=== PATIENT | female | born 1945 | race Caucasian/White ===

== ENCOUNTER → 2018-01-25 10:24 | Outpatient (CLI) | payer OTHER, SELFPAY ==
[2018-01-25 11:17] LABS: Add Manual Diff / Slide Review NO; Basophils Percent Auto 0.9 % (0-2); Hematocrit 41.4 % (36-46); Hemoglobin 13.2 g/dL (12.0-16.0); Lymphocytes Percent Auto 16.9 % (25-40); Mean Corpuscular HGB Conc 31.9 % (30-36); Mean Corpuscular Hemoglobin 25.2 PG (26-34); Mean Corpuscular Volume 78.8 fL (80-100); Neutrophils Absolute Auto 11700 /uL (3000-5900); Neutrophils Percent Auto 75.2 % (50-75); Platelet Count 181 X10^3/uL (150-400); Red Blood Cell Count 5.25 X10^6/uL (4.0-5.2); Red Cell Distribution Width 15.2 % (11.6-14.8); White Blood Cell Count 15.5 X10^3/uL (4.5-11.0)
[2018-01-25 12:03] LABS: Alanine Aminotransferase 32 IU/L (9-52); Albumin 4.3 g/dL (3.5-5.0); Albumin Globulin Ratio 1.3 (1.0-2.8); Alkaline Phosphatase 151 U/L (38-126); Aspartate Aminotransferase 23 IU/L (14-36); BUN Creatinine Ratio 18.8 (6-22); Bilirubin Total 0.8 mg/dL (0.2-1.3); Blood Urea Nitrogen 15 mg/dL (7-17); Calcium 9.2 mg/dL (8.4-10.2); Carbon Dioxide 24 mmol/L (22-32); Chloride 103 mmol/L (98-107); Cholesterol 147 mg/dL (140-199); Estimated Glomerular Filt Rate > 60.0 mL/min (>60); Globulin 3.3 g/dL (1.7-4.1); Glucose 98 mg/dL (80-110); HDL Cholesterol 41 mg/dL (40-60); HEMOLYSIS 21 (0-50); LDL Cholesterol Calculated 79 mg/dL (<100); Potassium 4.1 mmol/L (3.4-5.1); Sodium 140 mmol/L (137-145); Total Protein 7.6 g/dL (6.3-8.2); Triglycerides 136 mg/dL (35-150)
[2018-01-25 12:43] LABS: Microalbumi Creatinin Ratio Ur 8.8 ug/mg CR (<30); Microalbumin Urine Random 0.8 mg/dL (0-1.6)
[2018-01-25 14:00] LABS: Thyroid Stimulating Hormone 2.46 uIU/mL (0.47-4.68)
[2018-01-27 20:49] LABS: Fecal Immunochemical Test NOT DETECTED
== END ==
PROVIDERS: PCP Physician Assistant; Visit Provider Physician Assistant
DX: E78.5 Hyperlipidemia, unspecified (principal); I10 Essential (primary) hypertension; K76.0 Fatty (change of) liver, not elsewhere classified; R53.83 Other fatigue; R60.9 Edema, unspecified; Z12.11 Encounter for screening for malignant neoplasm of colon
CPT/HCPCS: 36415; 80053; 80061; 82043; 82274; 82570; 84443; 85025

== ENCOUNTER → 2018-03-23 14:00 | Oncology outpatient (ONC) | payer OTHER, SELFPAY ==
[2018-02-22 14:58] VITALS: BP 152/81; PULSE 70; RESP 18; TEMP 36.4; O2SAT 95
--- NOTE | 2018-02-22 15:40 | P.CONONC_ITS ---
History of Present Illness - Data of Consult Consult date: 02/22/18 Primary Care Provider: Darlyn Giron PA-C - Consult Narrative Narrative: Diagnosis: Leukocytosis History of present illness: Melanie Viveros is a 72 year old female who is referred for further evaluation of a mild to moderate leukocytosis. The patient reports that she has been feeling perfectly well and has no specific complaints. She has not had any recent infections. She denies any fevers chills or night sweats. She has not noted any adenopathy. Strength and energy level have been normal. No shortness of breath or cough. No GI complaints. She did have a routine CBC done on January 25. It showed a white count of 15.5 with a hemoglobin of 13.2 hematocrit 41.4 and platelets of a [id number]. Differential showed 75% neutrophils 16% lymphocytes 5% monos 2% eosinophils and 0.9% basophils. The only old CBCs we have available are from 2015 in 2016. In July 2015 her white count was 14.0. In August of 2015 it was 13.4 and in November of 2016 was 14.6. The patient is unaware of any prior history of abnormal blood counts. She has not been bothered by recurrent or persistent infections. It has been several years since she has had any. She has not needed any recent antibiotics. She has never required a red cell transfusion. She was never a blood donor. She is unaware of any family history of abnormal blood counts. Her past medical history is notable for hypertension and hyperlipidemia. She has had a prior hysterectomy for fibroids. She has otherwise been quite healthy. Her medications include amlodipine Lipitor metoprolol and spironolactone. She reports allergies to penicillin sulfa has Kyrie inhibitors and ARBs Family history is negative for malignancy or blood dyscrasias. Social history: She is . She does not have any children. She has never smoked. She has had occasional alcohol use. 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 CC: Da Catherine MD Home Medications and Allergies Home Medications Medication Instructions Recorded Confirmed Type pneumococcal 13-yeni conj 0.5 ml IM ONCE #0.5 ml 12/30/17 Rx vaccine-dip crm (PF) 0.5 mL IM syringe spironolactone 25 mg tablet 12.5 mg PO BID #14 tab 12/30/17 Rx spironolactone 25 mg tablet 12.5 mg PO BID #90 tab 12/30/17 Rx varicella-zoster glycoE [id number] 50 mcg IM ONCE #1 each 12/30/17 Rx adj(PF) 50 mcg/0.5 mL IM susp, kit metoprolol tartrate 100 mg tablet 100 mg PO Q12H #180 tab 01/07/18 Rx amlodipine 5 mg tablet 5 mg PO QDAY #90 tab 01/10/18 Rx atorvastatin 10 mg tablet 10 mg PO HS #90 tab 01/10/18 Rx Allergies Allergy/AdvReac Type Severity Reaction Status Date / Time Penicillins [PENICILLINS] Allergy Severe Swollen Unverified 12/30/17 10:15 tongue, hives, rash Sulfa (Sulfonamide Allergy Severe SWELLING, Unverified 12/30/17 10:15 Antibiotics) HIVES [SULFA (SULFONAMIDE ANTIBIOTICS)] KYRIE Inhibitors Allergy Mild Cough Unverified 12/30/17 10:15 [KYRIE INHIBITORS] ARB-Angiotensin Receptor Allergy Mild Cough Unverified 12/30/17 10:15 Antagonist [ARB-ANGIOTENSIN RECEPTOR ANTAGONIST] Medical History - Medical, Surgical, Family History Surgical History: Surgical History Status post hysterectomy Family History: Family History Mother Smoker - Social History Smoking Status: Never smoker Alcohol Intake Frequency: 0-2 drinks per day Household Members: spouse Current Occupational Status: retired Review of Systems - Patient Self-Reported Symptoms SR respiratory issues: Shortness of breath Constitutional: able to conduct usual activities, no weight loss, no weight gain Eyes: change in vision (She did have some injections in the eye following a retinal hemorrhage. She has also had cataract surgery.) Gastrointestinal: no change in appetite, no abdominal pain Integumentary: no bleeding or bruising Exam - Constitutional positive no acute distress, positive obese - Routine HEENT Exam Head: Present: normocephalic, atraumatic Eye: Present: EOMI, PERRL. Absent: scleral injection, conjunctivae pink ENT: Present: mucous membranes moist, oropharynx clear, dentition normal - Routine Neck Exam Present: supple. Absent: lymphadenopathy, thyromegaly - Routine Chest/Breast/Axilla Exam Axillae: Absent: lymphadenopathy - Routine Respiratory Exam Present: Clear to auscultation bilaterally. Absent: rales, wheezes - Routine Cardiovascular Exam Present: RRR, S1, S2. Absent: murmur - Routine Abdominal Exam Present: soft, normoactive bowel sounds. Absent: tenderness, organomegaly, mass - Routine Extremities Exam Absent: cyanosis, clubbing, edema - Routine Back/Spine Exam Back/Spine: Absent: paraspinal tenderness, vertebral tenderness - Routine Skin Exam Present: intact. Absent: petechiae, rash - Routine Neurological Exam Present: alert, oriented X3 - Routine Psychiatric Exam Present: normal affect, normal thought process Results - Imaging Additional studies: Procedures Insertion of intraocular lens prosthesis at time of cataract extraction, one- stage (08/02/13) Phacoemulsification and aspiration of cataract (08/02/13) Assessment and Plan (1) Leukocytosis, unspecified Current visit: Yes Status: Acute The patient is a 72-year-old woman with a mild elevation in her white cell count that appears to been present for at least 2 and half years. It does not appear to be progressive. She is not in any way symptomatic. There is no evidence of splenomegaly. She has no constitutional symptoms. The differential shows mostly neutrophils. It is possible that this may represent chronic phase CML although typically more immature white cells would be seen. She does have a microcytosis but no anemia. This could theoretically be polycythemia. We will plan on checking for bcr/ABL and for SAMUEL 2 mutation. If those are normal, then the probability of a myeloproliferative disorder to be quite low. I do not think that any further evaluation other than routine follow -up would be needed. She will return to clinic in about 2-3 weeks for follow- up.
[2018-02-28 12:08] LABS: Add Manual Diff / Slide Review NO; Basophils Percent Auto 0.6 % (0-2); Eosinophils Percent Auto 2.1 % (2-4); Hematocrit 42.9 % (36-46); Hemoglobin 13.6 g/dL (12.0-16.0); Lymphocytes Percent Auto 17.6 % (25-40); Mean Corpuscular HGB Conc 31.7 % (30-36); Mean Corpuscular Hemoglobin 25.1 PG (26-34); Mean Corpuscular Volume 79.4 fL (80-100); Monocytes Percent Auto 5.4 % (3-14); Neutrophils Absolute Auto 8700 /uL (1500-7000); Neutrophils Percent Auto 74.3 % (50-75); Platelet Count 374 X10^3/uL (150-400); Red Cell Distribution Width 15.3 % (11.6-14.8); White Blood Cell Count 11.7 X10^3/uL (4.5-11.0)
--- NOTE | 2018-03-22 11:02 | ONC.SCHED ---
SAMUEL 2 RESULTS: ordered 02/28/18: [facility] had internal issues, results should be ready in approximately 2 days
[2018-03-23 14:15] VITALS: BP 143/82; PULSE 63; RESP 18; TEMP 36.8; O2SAT 95
--- NOTE | 2018-03-23 14:18 | ONC.PN ---
PN -Subjective Interval history: Diagnosis: Leukocytosis Interval history: The patient is a 72-year-old woman who returns today for follow-up. She was seen here last about a month ago with mild chronic increase in her white count. The differential was primarily mature neutrophils. She continues to feel well. She denies any fevers chills or sweats. No persistent aches or pains. She has not had any recent infections. She has not noted any adenopathy. Her appetite has been stable. She denies any change in her weight. No GI complaints. She denies any other changes in her health. Her medications are unchanged and include amlodipine atorvastatin metoprolol and spironolactone. - Patient Self-Reported Symptoms SR respiratory issues: Shortness of breath Home Medications and Allergies Home Medications Medication Instructions Recorded Confirmed Type pneumococcal 13-yeni conj 0.5 ml IM ONCE #0.5 ml 12/30/17 Rx vaccine-dip crm (PF) 0.5 mL IM syringe spironolactone 25 mg tablet 12.5 mg PO BID #14 tab 12/30/17 Rx varicella-zoster glycoE [id number] 50 mcg IM ONCE #1 each 12/30/17 Rx adj(PF) 50 mcg/0.5 mL IM susp, kit metoprolol tartrate 100 mg tablet 100 mg PO Q12H #180 tab 01/07/18 Rx amlodipine 5 mg tablet 5 mg PO QDAY #90 tab 01/10/18 Rx atorvastatin 10 mg tablet 10 mg PO HS #90 tab 01/10/18 Rx Allergies Allergy/AdvReac Type Severity Reaction Status Date / Time Penicillins [PENICILLINS] Allergy Severe Swollen Unverified 12/30/17 10:15 tongue, hives, rash Sulfa (Sulfonamide Allergy Severe SWELLING, Unverified 12/30/17 10:15 Antibiotics) HIVES [SULFA (SULFONAMIDE ANTIBIOTICS)] CINDY Inhibitors Allergy Mild Cough Unverified 12/30/17 10:15 [CINDY INHIBITORS] ARB-Angiotensin Receptor Allergy Mild Cough Unverified 12/30/17 10:15 Antagonist [ARB-ANGIOTENSIN RECEPTOR ANTAGONIST] Exam - Constitutional positive no acute distress, positive obese - Routine HEENT Exam Head: Present: normocephalic, atraumatic Eye: Present: EOMI, PERRL. Absent: conjunctival icterus, scleral injection ENT: Present: mucous membranes moist, oropharynx clear - Routine Neck Exam Present: supple. Absent: lymphadenopathy, thyromegaly - Routine Respiratory Exam Present: Clear to auscultation bilaterally. Absent: rales, wheezes - Routine Cardiovascular Exam Present: RRR, S1, S2. Absent: murmur - Routine Abdominal Exam Present: soft, normoactive bowel sounds. Absent: tenderness, organomegaly, mass Results - Labs Laboratory Last Values WBC 11.7 X10^3/uL (4.5-11.0) H 02/28/18 11:34 RBC 5.40 X10^6/uL (4.0-5.2) H 02/28/18 11:34 Hgb 13.6 g/dL (12.0-16.0) 02/28/18 11:34 Hct 42.9 % (36-46) 02/28/18 11:34 MCV 79.4 fL (80-100) L 02/28/18 11:34 MCH 25.1 PG (26-34) L 02/28/18 11:34 MCHC 31.7 % (30-36) 02/28/18 11:34 RDW 15.3 % (11.6-14.8) H 02/28/18 11:34 Plt Count 374 X10^3/uL (150-400) 02/28/18 11:34 Neut % (Auto) 74.3 % (50-75) 02/28/18 11:34 Lymph % (Auto) 17.6 % (25-40) L 02/28/18 11:34 [place] % (Auto) 5.4 % (3-14) 02/28/18 11:34 Eos % (Auto) 2.1 % (2-4) 02/28/18 11:34 Baso % (Auto) 0.6 % (0-2) 02/28/18 11:34 Neut # (Auto) 8700 /uL ([id number]) H 02/28/18 11:34 Ref Test (Refrig) 02/28/18 11:38 - Imaging Additional studies: Procedures Insertion of intraocular lens prosthesis at time of cataract extraction, one-stage (08/02/13) Phacoemulsification and aspiration of cataract (08/02/13) Assessment and Plan (1) Leukocytosis, unspecified Current visit: Yes Status: Acute The patient is a 72-year-old woman with a mild elevation in her white cell count that appears to been present for at least 2 and half years. It does not appear to be progressive. She is not in any way symptomatic. There is no evidence of splenomegaly. She has no constitutional symptoms. The differential shows mostly neutrophils. Her most recent CBC shows slight decrease in her white count but is still mildly elevated. She did have a bcr/ABL was undetectable. This is not CML. It still theoretically possible that this may represent a another myeloproliferative disorder. SAMUEL-2 was ordered. There is apparently some trouble in the lab in the results her still pending which should be available next day or 2. If that is negative, I do not think any further evaluation be needed at this time other than periodic CBC. If it were positive, then she would need ongoing follow-up but probably not any immediate treatment. The patient will follow up with her primary care physician with a CBC every 6-12 months and follow-up here as needed, if there were any significant changes in her counts.
--- NOTE | 2018-03-23 14:23 | P.PNONC_ITS ---
PN -Subjective Interval history: Diagnosis: Leukocytosis Interval history: The patient is a 72-year-old woman who returns today for follow-up. She was seen here last about a month ago with mild chronic increase in her white count. The differential was primarily mature neutrophils. She continues to feel well. She denies any fevers chills or sweats. No persistent aches or pains. She has not had any recent infections. She has not noted any adenopathy. Her appetite has been stable. She denies any change in her weight. No GI complaints. She denies any other changes in her health. Her medications are unchanged and include amlodipine atorvastatin metoprolol and spironolactone. - Patient Self-Reported Symptoms SR respiratory issues: Shortness of breath Home Medications and Allergies Home Medications Medication Instructions Recorded Confirmed Type pneumococcal 13-yeni conj 0.5 ml IM ONCE #0.5 ml 12/30/17 Rx vaccine-dip crm (PF) 0.5 mL IM syringe spironolactone 25 mg tablet 12.5 mg PO BID #14 tab 12/30/17 Rx varicella-zoster glycoE [id number] 50 mcg IM ONCE #1 each 12/30/17 Rx adj(PF) 50 mcg/0.5 mL IM susp, kit metoprolol tartrate 100 mg tablet 100 mg PO Q12H #180 tab 01/07/18 Rx amlodipine 5 mg tablet 5 mg PO QDAY #90 tab 01/10/18 Rx atorvastatin 10 mg tablet 10 mg PO HS #90 tab 01/10/18 Rx Allergies Allergy/AdvReac Type Severity Reaction Status Date / Time Penicillins [PENICILLINS] Allergy Severe Swollen Unverified 12/30/17 10:15 tongue, hives, rash Sulfa (Sulfonamide Allergy Severe SWELLING, Unverified 12/30/17 10:15 Antibiotics) HIVES [SULFA (SULFONAMIDE ANTIBIOTICS)] CINDY Inhibitors Allergy Mild Cough Unverified 12/30/17 10:15 [CINDY INHIBITORS] ARB-Angiotensin Receptor Allergy Mild Cough Unverified 12/30/17 10:15 Antagonist [ARB-ANGIOTENSIN RECEPTOR ANTAGONIST] Exam - Constitutional positive no acute distress, positive obese - Routine HEENT Exam Head: Present: normocephalic, atraumatic Eye: Present: EOMI, PERRL. Absent: conjunctival icterus, scleral injection ENT: Present: mucous membranes moist, oropharynx clear - Routine Neck Exam Present: supple. Absent: lymphadenopathy, thyromegaly - Routine Respiratory Exam Present: Clear to auscultation bilaterally. Absent: rales, wheezes - Routine Cardiovascular Exam Present: RRR, S1, S2. Absent: murmur - Routine Abdominal Exam Present: soft, normoactive bowel sounds. Absent: tenderness, organomegaly, mass Results - Labs Laboratory Last Values WBC 11.7 X10^3/uL (4.5-11.0) H 02/28/18 11:34 RBC 5.40 X10^6/uL (4.0-5.2) H 02/28/18 11:34 Hgb 13.6 g/dL (12.0-16.0) 02/28/18 11:34 Hct 42.9 % (36-46) 02/28/18 11:34 MCV 79.4 fL (80-100) L 02/28/18 11:34 MCH 25.1 PG (26-34) L 02/28/18 11:34 MCHC 31.7 % (30-36) 02/28/18 11:34 RDW 15.3 % (11.6-14.8) H 02/28/18 11:34 Plt Count 374 X10^3/uL (150-400) 02/28/18 11:34 Neut % (Auto) 74.3 % (50-75) 02/28/18 11:34 Lymph % (Auto) 17.6 % (25-40) L 02/28/18 11:34 [place] % (Auto) 5.4 % (3-14) 02/28/18 11:34 Eos % (Auto) 2.1 % (2-4) 02/28/18 11:34 Baso % (Auto) 0.6 % (0-2) 02/28/18 11:34 Neut # (Auto) 8700 /uL ([id number]) H 02/28/18 11:34 Ref Test (Refrig) 02/28/18 11:38 - Imaging Additional studies: Procedures Insertion of intraocular lens prosthesis at time of cataract extraction, one- stage (08/02/13) Phacoemulsification and aspiration of cataract (08/02/13) Assessment and Plan (1) Leukocytosis, unspecified Current visit: Yes Status: Acute The patient is a 72-year-old woman with a mild elevation in her white cell count that appears to been present for at least 2 and half years. It does not appear to be progressive. She is not in any way symptomatic. There is no evidence of splenomegaly. She has no constitutional symptoms. The differential shows mostly neutrophils. Her most recent CBC shows slight decrease in her white count but is still mildly elevated. She did have a bcr/ ABL was undetectable. This is not CML. It still theoretically possible that this may represent a another myeloproliferative disorder. SAMUEL-2 was ordered. There is apparently some trouble in the lab in the results her still pending which should be available next day or 2. If that is negative, I do not think any further evaluation be needed at this time other than periodic CBC. If it were positive, then she would need ongoing follow-up but probably not any immediate treatment. The patient will follow up with her primary care physician with a CBC every 6- 12 months and follow-up here as needed, if there were any significant changes in her counts.
== END ==
PROVIDERS: Family Provider Physician Assistant; PCP Physician Assistant
DX: D72.829 Elevated white blood cell count, unspecified (principal)
CPT/HCPCS: 36415; 81206; 81207; 81270; 85025; 99204; 99214

== ENCOUNTER → 2020-02-02 10:15 | Outpatient (CLI) | payer OTHER, SELFPAY ==
[2020-02-02 11:50] LABS: Hematocrit 43.5 % (36-46); Hemoglobin 13.7 g/dL (12.0-16.0); Mean Corpuscular HGB Conc 31.4 % (30-36); Mean Corpuscular Volume 79.7 fL (80-100); Red Blood Cell Count 5.46 X10^6/uL (4.0-5.2); Red Cell Distribution Width 15.5 % (11.6-14.8); White Blood Cell Count 11.4 X10^3/uL (4.5-11.0)
[2020-02-02 11:57] LABS: Alanine Aminotransferase 29 IU/L (<35); Albumin Globulin Ratio 1.1 (1.0-2.8); Alkaline Phosphatase 155 U/L (38-126); Aspartate Aminotransferase 30 IU/L (14-36); BUN Creatinine Ratio 16.9 (6-22); Bilirubin Total 1.1 mg/dL (0.2-1.3); Blood Urea Nitrogen 14 mg/dL (7-17); Calcium 9.2 mg/dL (8.4-10.2); Carbon Dioxide 26 mmol/L (22-32); Chloride 102 mmol/L (98-107); Cholesterol 150 mg/dL (140-199); Estimated Glomerular Filt Rate > 60.0 mL/min (>60); Globulin 3.8 g/dL (1.7-4.1); Glucose 104 mg/dL (80-110); HDL Cholesterol 42 mg/dL (40-60); HEMOLYSIS < 15 (0-50); LDL Cholesterol Calculated 79 mg/dL (<100); Potassium 4.3 mmol/L (3.4-5.1); Sodium 135 mmol/L (137-145); Total Protein 7.8 g/dL (6.3-8.2); Triglycerides 144 mg/dL (35-150)
[2020-02-02 12:31] LABS: Hypochromasia 1+; Platelet Estimate Adequate on smear
== END ==
PROVIDERS: Family Provider Physician Assistant; PCP Nurse Practitioner Family; Referring Provider Nurse Practitioner Family; Visit Provider Nurse Practitioner Family
DX: Z00.00 Encounter for general adult medical examination without abnormal findings (principal); I10 Essential (primary) hypertension; E78.5 Hyperlipidemia, unspecified; Z13.6 Encounter for screening for cardiovascular disorders
CPT/HCPCS: 36415; 80053; 80061; 84443; 85027

== ENCOUNTER → 2020-09-24 11:27 | Outpatient (CLI) | payer OTHER, SELFPAY ==
[2020-09-24 13:18] LABS: BUN Creatinine Ratio 19.4 (6-22); Blood Urea Nitrogen 14 mg/dL (7-17); Estimated Glomerular Filt Rate > 60.0 mL/min (>60)
== END ==
PROVIDERS: Family Provider Physician Assistant; PCP Nurse Practitioner Family; Referring Provider Otolaryngology; Visit Provider Otolaryngology
DX: Z01.812 Encounter for preprocedural laboratory examination (principal)
CPT/HCPCS: 36415; 82565; 84520

== ENCOUNTER → 2020-09-26 08:58 | Outpatient (CLI) | payer OTHER, SELFPAY ==
--- NOTE | 2020-09-26 | DI.CT.S_ITS ---
PROCEDURE: CT SOFT TISSUE NECK W CON INDICATIONS: Squamous cell carcinoma of skin TECHNIQUE: After the administration of intravenous contrast, 3.0 mm axial sections acquired from the sella to the aortic arch. Additional oblique axial 3.0 mm sections acquired through the pharynx. 3 mm thick coronal and sagittal reformats were generated. For radiation dose reduction, the following was used: automated exposure control. COMPARISON: None. FINDINGS: Image quality: Excellent. Lymph nodes: No enlarged lymph nodes seen throughout the neck. Vessels: Visualized vasculature appears patent. Neck spaces: The oropharynx, nasopharynx, and pharynx demonstrate no mucosal lesions. The vocal cords, false vocal cords, pyriform sinuses, epiglottis, vallecula, and tongue base all appear normal. Extramucosal spaces appear unremarkable. Glands: The submandibular glands appear normal. The parotid glands demonstrate symmetric fatty infiltration. Thyroid gland demonstrates an irregular 2.5 cm nodule of the right thyroid of the right thyroid. Miscellaneous: Visualized brain and orbits appear normal. Lung apices appear clear. Focal skin thickening can be seen involving the left cheek. Bones: No suspicious bony lesions. Visualized sinuses and mastoids appear unremarkable. Moderate focal degenerative change is seen at C6-C7. Milder degenerative changes are seen elsewhere. IMPRESSION: No enlarged lymph nodes are seen. 2.5 cm right thyroid mass noted. When clinically appropriate, a dedicated thyroid ultrasound is recommended for further evaluation. No additional suspicious masses are seen. Incidental note is made of: Focal C6-C7 degenerative change Symmetric fatty atrophy of the parotid glands Dictated by: John Augustine M.D. on 09/26/2020 at 8:41 Approved by: John Augustine M.D. on 09/26/2020 at 8:44
== END ==
PROVIDERS: Family Provider Physician Assistant; PCP Nurse Practitioner Family; Referring Provider Otolaryngology; Visit Provider Otolaryngology
DX: C44.320 Squamous cell carcinoma of skin of unspecified parts of face (principal); E07.9 Disorder of thyroid, unspecified; M47.812 Spondylosis without myelopathy or radiculopathy, cervical region
CPT/HCPCS: 70491; Q9967

== ENCOUNTER → 2020-10-07 09:31 | Outpatient (CLI) | payer OTHER, SELFPAY ==
--- NOTE | 2020-10-07 | DI.US.S_ITS ---
PROCEDURE: US THYROID INDICATIONS: NONTOXIC SINGLE THYROID NODULE TECHNIQUE: Real-time scanning was performed of the thyroid gland, with image documentation. COMPARISON: [facility], CT, CT SOFT TISSUE NECK W CON, 09/26/2020, 9:12. FINDINGS: Right: Thyroid lobe measures 5.6 x 2.8 x 3.0 cm, and is homogeneous in echotexture. Left: Thyroid lobe measures 4.8 x 1.6 x 1.6 cm, and is homogenous in echotexture. Isthmus: 9 mm thick. Nodule number: 1 Location: Right superior thyroid lobe Size: 0.9 x 1.0 x 1.0 cm. Composition: Solid Echogenicity: Hypoechoic Shape: wider than tall. Margins: Smooth Echogenic foci: Punctate echogenic foci are noted Total points: 7 ACR TI-RADS category: TI-RADS 5, highly suspicious Nodule number: 2 Location: Right superior/mid lobe Size: 3.6 x 2.5 x 2.3 cm. Composition: Predominantly solid Echogenicity: Isoechoic Shape: wider than tall. Margins: Smooth Echogenic foci: Punctate echogenic foci are present Total points: 4 ACR TI-RADS category: TI-RADS 4, moderately suspicious Nodule number: 3 Location: Left inferior thyroid lobe Size: 0.9 x 0.7 x 0.8 cm. Composition: Predominantly cystic Echogenicity: Isoechoic to anechoic Shape: Taller than wide Margins: Smooth Echogenic foci: None Total points: 5 ACR TI-RADS category: TI-RADS 4, moderately suspicious Nodule number: 4 Location: Left mid thyroid lobe Size: 0.7 x 0.5 x 0.4 cm. Composition: Solid Echogenicity: Hyperechoic Shape: wider than tall. Margins: Lobulated Echogenic foci: None Total points: 6 ACR TI-RADS category: TI-RADS 4, moderately suspicious IMPRESSION: Bilateral thyroid nodules as described above. Right thyroid nodule 1 meets criteria for fine-needle aspiration. Right thyroid nodule 2 also meets criteria for fine-needle aspiration. Left thyroid nodules do not meet criteria for fine-needle aspiration at this time. Follow-up recommendations as described below. ACR TI-RADS definitions and recommendations: TI-RADS 1 (benign): 0 points. FNA not needed. TI-RADS 2 (not suspicious): 2 points. FNA not needed. TI-RADS 3 (mildly suspicious): 3 points. * FNA if 2.5 cm or larger, follow up if 1.5 cm or larger (at 1, 3, and 5 years). TI-RADS 4 (moderately suspicious): 4-6 points. * FNA if 1.5 cm or larger, follow up if 1 cm or larger (at 1, 2, 3, and 5 years). TI-RADS 5 (highly suspicious): 7 points or more. * FNA if 1 cm or larger, follow up if 0.5 cm or larger (every year for 5 years). Dictated by: Dilip Metcalf M.D. on 10/07/2020 at 11:17 Approved by: Dilip Metcalf M.D. on 10/07/2020 at 11:27
== END ==
PROVIDERS: Family Provider Physician Assistant; PCP Nurse Practitioner Family; Referring Provider Otolaryngology; Visit Provider Otolaryngology
DX: E04.2 Nontoxic multinodular goiter (principal)
CPT/HCPCS: 76536

== ENCOUNTER → 2021-06-18 10:12 | Outpatient (CLI) | payer OTHER, SELFPAY ==
[2021-06-18 12:12] LABS: Hematocrit 41.9 % (36-46); Hemoglobin 13.6 g/dL (12.0-16.0); Mean Corpuscular HGB Conc 32.3 % (30-36); Mean Corpuscular Hemoglobin 25.1 PG (26-34); Mean Corpuscular Volume 77.7 fL (80-100); Platelet Count 387 X10^3/uL (150-400); Red Cell Distribution Width 15.4 % (11.6-14.8); White Blood Cell Count 11.5 X10^3/uL (4.5-11.0)
[2021-06-18 12:30] LABS: Alanine Aminotransferase 26 IU/L (<35); Albumin 4.1 g/dL (3.5-5.0); Albumin Globulin Ratio 1.2 (1.0-2.8); Alkaline Phosphatase 147 U/L (38-126); Aspartate Aminotransferase 26 IU/L (14-36); BUN Creatinine Ratio 12.5 (6-22); Bilirubin Total 1.1 mg/dL (0.2-1.3); Blood Urea Nitrogen 10 mg/dL (7-17); Calcium 9.2 mg/dL (8.4-10.2); Carbon Dioxide 25 mmol/L (22-32); Chloride 106 mmol/L (98-107); Cholesterol 153 mg/dL (140-199); Estimated Glomerular Filt Rate > 60.0 mL/min (>60); Globulin 3.5 g/dL (1.7-4.1); Glucose 116 mg/dL (80-110); HDL Cholesterol 38 mg/dL (40-60); HEMOLYSIS < 15 (0-50); LDL Cholesterol Calculated 86 mg/dL (<100); Potassium 4.5 mmol/L (3.4-5.1); Sodium 141 mmol/L (137-145); Total Protein 7.6 g/dL (6.3-8.2); Triglycerides 145 mg/dL (35-150)
== END ==
PROVIDERS: Family Provider Physician Assistant; PCP Nurse Practitioner Family; Referring Provider Nurse Practitioner Family; Visit Provider Nurse Practitioner Family
DX: E78.5 Hyperlipidemia, unspecified (principal); I10 Essential (primary) hypertension; Z00.00 Encounter for general adult medical examination without abnormal findings; K76.0 Fatty (change of) liver, not elsewhere classified
CPT/HCPCS: 36415; 80053; 80061; 85027

== ENCOUNTER → 2022-08-25 09:59 | Outpatient (CLI) | payer OTHER, SELFPAY ==
[2022-08-25 11:10] LABS: Add Manual Diff / Slide Review NO; Basophils Absolute Auto 100 /uL (0-100); Basophils Percent Auto 0.9 % (0-2); Eosinophils Absolute Auto 100 /uL (0-450); Eosinophils Percent Auto 1.4 % (2-4); Hematocrit 41.9 % (36-46); Hemoglobin 13.9 g/dL (12.0-16.0); Lymphocytes Absolute Auto 1200 /uL (1100-4500); Lymphocytes Percent Auto 13.3 % (25-40); Mean Corpuscular HGB Conc 33.2 % (30-36); Mean Corpuscular Hemoglobin 26.7 PG (26-34); Mean Corpuscular Volume 80.5 fL (80-100); Monocytes Absolute Auto 300 /uL (0-900); Monocytes Percent Auto 3.8 % (3-14); Neutrophils Absolute Auto 7300 /uL (1500-7000); Neutrophils Percent Auto 80.6 % (50-75); Platelet Count 353 X10^3/uL (150-400); Red Blood Cell Count 5.21 X10^6/uL (4.0-5.2); Red Cell Distribution Width 16.2 % (11.6-14.8)
[2022-08-25 11:38] LABS: Alanine Aminotransferase 21 IU/L (<35); Albumin Globulin Ratio 1.5 (1.0-2.8); Alkaline Phosphatase 167 U/L (38-126); Aspartate Aminotransferase 19 IU/L (14-36); BUN Creatinine Ratio 17.4 (6-22); Bilirubin Total 1.3 mg/dL (0.2-1.3); Blood Urea Nitrogen 15 mg/dL (7-17); Calcium 9.3 mg/dL (8.4-10.2); Carbon Dioxide 27 mmol/L (22-32); Chloride 105 mmol/L (98-107); Cholesterol 155 mg/dL (140-199); Estimated Glomerular Filt Rate > 60 mL/min (>60); Globulin 2.7 g/dL (1.7-4.1); Glucose 112 mg/dL (80-110); HDL Cholesterol 50 mg/dL (40-60); HEMOLYSIS < 15 (0-50); LDL Cholesterol Calculated 78 mg/dL (<100); Potassium 4.6 mmol/L (3.4-5.1); Sodium 140 mmol/L (137-145); Total Protein 6.7 g/dL (6.3-8.2); Triglycerides 137 mg/dL (35-150)
[2022-08-26 03:15] LABS: x Labcorp Estim. Avg Glu (eAG) 117 mg/dL (.); x Labcorp Hemoglobin A1c 5.7 % (4.8-5.6)
[2022-08-26 13:39] LABS: Fecal Immunochemical Test Negative (Negative)
== END ==
PROVIDERS: Family Provider Physician Assistant; PCP Registered Nurse Diabetes Educator; Referring Provider Registered Nurse Diabetes Educator; Visit Provider Registered Nurse Diabetes Educator
DX: E78.5 Hyperlipidemia, unspecified; D72.829 Elevated white blood cell count, unspecified; I10 Essential (primary) hypertension; Z12.11 Encounter for screening for malignant neoplasm of colon; K76.0 Fatty (change of) liver, not elsewhere classified
CPT/HCPCS: 36415; 80053; 80061; 82274; 83036; 85025